=== PATIENT | female | born 1995 | race Two or more races ===

== ENCOUNTER → 2022-02-18 | Emergency (ER) | payer SELFPAY ==
[~2022-02-18] VITALS: Ht 154.9 cm; Wt 75.0 kg
[2022-02-18 05:45] VITALS: BP 132/80
== END | disposition left against medical advice (07) ==
LOC: EDBD 05:30 → ER 05:30
DX: F32.9 Major depressive disorder, single episode, unspecified (principal); Z53.21 Procedure and treatment not carried out due to patient leaving prior to being seen by health care provider

== ENCOUNTER → 2022-04-05 | Emergency (ER) | payer OTHER, MEDICAID ==
[~2022-04-05] VITALS: Ht 154.9 cm; Wt 65.7 kg
[2022-04-05 08:43] VITALS: BP 143/93
== END | disposition left against medical advice (07) ==
LOC: ER 08:26
DX: R10.2 Pelvic and perineal pain (principal); Z53.21 Procedure and treatment not carried out due to patient leaving prior to being seen by health care provider; X92 Assault by drowning and submersion; Y93.89 Activity, other specified; Y92.89 Other specified places as the place of occurrence of the external cause; Y99.8 Other external cause status

== ENCOUNTER 2022-07-22 19:52 | Emergency (ER) | payer OTHER, MEDICAID ==
[~2022-07-22] VITALS: Ht 170.2 cm; Wt 70.0 kg
[2022-07-22 19:55] VITALS: BP 132/62
== END 2022-07-22 21:45 | disposition left against medical advice (07) ==
LOC: ER 19:52 → EDBD 19:52 → ER 21:45
DX: F10.120 Alcohol abuse with intoxication, uncomplicated (principal); Z53.21 Procedure and treatment not carried out due to patient leaving prior to being seen by health care provider

== ENCOUNTER 2022-12-21 14:46 | Emergency (ER) | payer OTHER, MEDICAID ==
[~2022-12-21] VITALS: Ht 154.9 cm; Wt 140.0 kg
[2022-12-21] MEDS ORDERED: LORazepam 2MG/ML-1ML VIAL IV ONE (15:00)
[2022-12-21] MEDS ORDERED: CHL25C PO (16:14)
[2022-12-21 18:10] VITALS: BP 124/83
== END 2022-12-21 18:09 | disposition home or self-care (01) ==
LOC: EDBD 14:46 → ER 14:46
DX: F10.139 Alcohol abuse with withdrawal, unspecified (principal)
CPT/HCPCS: 93005; 96374; 99283; J2060

== ENCOUNTER 2023-01-27 03:50 | Emergency (ER) | payer OTHER, MEDICAID ==
[~2023-01-27] VITALS: Ht 154.9 cm; Wt 68.1 kg
[~2023-01-27 03:50] MED LIST: CHL25C PO
[2023-01-27 04:25] LABS: Basophils # (auto) 0.1 10 ^3/uL (0-0.2); Basophils % (auto) 0.6 % (0.0-2.0); Eosinophils # (auto) 0 10 ^3/uL (0-0.8); Eosinophils % (auto) 0.3 % (0.0-7.0); Hemoglobin 13.4 g/dL (12.2-16.2); Lymphocytes # (auto) 6.1 10 ^3/uL (0.4-5.4); Lymphocytes % (auto) 37.4 % (10.0-50.0); Mean Corpuscular Hemoglobin 32.5 pg (28.0-32.0); Mean Corpuscular Hgb Conc. 33.4 g/dL (32.0-36.0); Mean Corpuscular Volume 97.4 fL (80.0-100.0); Monocytes # (auto) 0.9 10 ^3/uL (0-1.3); Monocytes % (auto) 5.2 % (0.0-12.0); Neutrophils # (auto) 9.3 10 ^3/uL (1.6-8.6); Neutrophils % (auto) 56.5 % (37.0-80.0); Nucleated Red Blood Cells % 0.1 %; Red Blood Cells 4.11 10^6/uL (4.0-5.20); Red Cell Distribution Width 13.9 % (11.8-14.3); White Blood Cell 16.4 10^3/uL (4.4-10.8)
[2023-01-27 04:38] LABS: Albumin 3.5 g/dL (3.4-5.0); Calcium 8.1 mg/dL (8.5-10.1); Potassium 3.1 mmol/L (3.5-5.1)
[2023-01-27 04:40] LABS: BUN/Creatinine Ratio 12.9 (10.0-20.0)
[2023-01-27 04:43] LABS: Bilirubin, Total 0.8 mg/dL (0.2-1.0); Total Protein 7.1 g/dL (6.4-8.2)
[2023-01-27 05:32] VITALS: PULSE 108; RESP 17; O2SAT 95
[2023-01-27 06:30] LABS: Urine Bacteria MOD /hpf (None Seen); Urine Blood 3+ /uL (Negative); Urine Clarity Clear (Clear); Urine Color Yellow (Yellow); Urine Hyaline Cast FEW /lpf (0 - 2); Urine Mucus FEW (None Seen); Urine Protein, UAD 1+ (Negative); Urine Specific Gravity 1.024 (1.001-1.035); Urine Urobilinogen Normal (Negative); Urine WBC 4 /hpf (0 - 5)
[2023-01-27] MEDS ORDERED: LORazepam 2MG/ML-1ML VIAL IV ONE ×3 (06:45→10:45)
[2023-01-27] MEDS ORDERED: SODIUM CHLORIDE 0.9% 1,000 ML IV ONE ×2 (06:45→10:45)
[2023-01-27 06:50] LABS: Amphetamine Screen, Urine NEGATIVE (NEGATIVE); Barbiturate Scree,Urine NEGATIVE (NEGATIVE); Benzodiazephine Screen, Urine POSITIVE (NEGATIVE); Cocaine Screen, Urine NEGATIVE (NEGATIVE); Opiate Scree,Urine NEGATIVE (NEGATIVE)
[2023-01-27 07:02] LABS: Cannabinoid Screen, Urine NEGATIVE (NEGATIVE); Phencyclidine Screen, Urine NEGATIVE (NEGATIVE)
[2023-01-27] MEDS ORDERED: THIAMINE 100mg/ml INJ (200mg/2ml VIAL) IV ONE (07:45)
[2023-01-27 07:48] VITALS: PULSE 124; RESP 14; O2SAT 97
[2023-01-27] MEDS ORDERED: cefTRIAXone 1GM/50ML D5W 50 ML IV ONE (08:45)
[2023-01-27] MEDS ORDERED: POTASSIUM EFFERVESENT TAB 25 MEQ PO ONE (08:45)
[2023-01-27 10:00] VITALS: TEMP 98.1
[2023-01-27 12:00] VITALS: BP 105/66; PULSE 120; RESP 26; O2SAT 97
== END 2023-01-27 13:03 | disposition home or self-care (01) ==
LOC: EDBD 03:50 → ER 03:50
DX: F10.10 Alcohol abuse, uncomplicated (principal); R51.9 Headache, unspecified; R07.89 Other chest pain; Z79.899 Other long term (current) drug therapy; Y90.6 Blood alcohol level of 120-199 mg/100 ml
CPT/HCPCS: 36415; 70450; 71045; 80053; 80307; 80320; 81001; 82140; 83690; 84484; 85025; 93005; 96361; 96365; 96375; 96376; 99285; J0696; J2060; J3411; J7030

== ENCOUNTER 2023-11-15 20:00 | Inpatient (IN) | payer MEDICAID, OTHER ==
[~2023-11-15] VITALS: Ht 154.9 cm; Wt 76.1 kg
[2023-11-15] MEDS: SODIUM CHLORIDE 0.9% 1,000 ML IV ONE ×2 (20:41→21:45)
[2023-11-15] MEDS: LORazepam 2MG/ML-1ML VIAL IV ONE (20:50)
[2023-11-15] MEDS: THIAMINE HCL 100 MG TAB PO ONE (20:50)
[2023-11-15] MEDS: ONDANSETRON HCL 4 MG/2 ML VIAL IV ONE (20:50)
[2023-11-15 20:59] VITALS: O2SAT 97
[2023-11-15 21:08] LABS: Basophils # (auto) 0 10 ^3/uL (0-0.2); Basophils % (auto) 0.3 % (0.0-2.0); Eosinophils # (auto) 0 10 ^3/uL (0-0.8); Hematocrit 41.2 % (36.0-46.0); Hemoglobin 14.1 g/dL (12.2-16.2); Lymphocytes # (auto) 1.1 10 ^3/uL (0.4-5.4); Lymphocytes % (auto) 8.8 % (10.0-50.0); Mean Corpuscular Hemoglobin 32.9 pg (28.0-32.0); Mean Corpuscular Hgb Conc. 34.1 g/dL (32.0-36.0); Mean Corpuscular Volume 96.4 fL (80.0-100.0); Monocytes # (auto) 1.1 10 ^3/uL (0-1.3); Monocytes % (auto) 8.2 % (0.0-12.0); Neutrophils # (auto) 10.7 10 ^3/uL (1.6-8.6); Neutrophils % (auto) 82.7 % (37.0-80.0); Red Blood Cells 4.28 10^6/uL (4.0-5.20); Red Cell Distribution Width 14.5 % (11.8-14.3); White Blood Cell 12.9 10^3/uL (4.4-10.8)
[2023-11-15 21:26] LABS: Alanine Aminotransferase 36 U/L (7-40); Alkaline Phosphatase 72 U/L (46-116); Anion Gap 17 (5-15); Aspartate Aminotransferase 41 U/L (13-40); BUN/Creatinine Ratio 7.6 (10.0-20.0); Blood Alcohol 40.3 mg/dL (<10); Blood Urea Nitrogen 6 mg/dL (9-23); Calcium 9.9 mg/dL (8.5-10.1); Carbon Dioxide 19 mmol/L (20-30); Chloride 97 mmol/L (98-107); Glucose 101 mg/dL (74-106); Potassium 3.5 mmol/L (3.5-5.1); Sodium 133 mmol/L (136-145)
[2023-11-15 21:27] LABS: Bilirubin, Total 1.5 mg/dL (0.2-1.0)
[2023-11-15 21:33] LABS: Lactic Acid w/Reflex 5.6 mmol/L (0.4-2.0)
[2023-11-15 21:42] LABS: Lipase 47 U/L (12-53)
[2023-11-15] MEDS: chlordiazePOXIDE HCL 25 MG CAP PO ONE (21:48)
[2023-11-15 22:03] LABS: Urine Bacteria None Seen /hpf (None Seen)
[2023-11-15] MEDS: PANTOPRAZOLE 40 MG/10 ML VIAL INJ IV ONE (22:06)
[2023-11-15 22:20] LABS: Urine Blood Negative /uL (Negative); Urine Clarity Turbid (Clear); Urine Color Yellow (Yellow); Urine Mucus FEW (None Seen); Urine Protein, UAD 1+ (Negative); Urine Specific Gravity 1.033 (1.001-1.035); Urine Urobilinogen Normal (Negative); Urine WBC 3 /hpf (0 - 5)
[2023-11-15 22:31] LABS: Amphetamine Screen, Urine Neg (NEGATIVE); Barbiturate Scree,Urine Neg (NEGATIVE); Benzodiazephine Screen, Urine Neg (NEGATIVE); Cocaine Screen, Urine Neg (NEGATIVE); Opiate Scree,Urine Neg (NEGATIVE)
[2023-11-15 22:32] LABS: Cannabinoid Screen, Urine Neg (NEGATIVE); Phencyclidine Screen, Urine Neg (NEGATIVE)
[2023-11-15] MEDS: cefTRIAXone 1GM/50ML D5W 50 ML IV ONE (22:58)
[2023-11-15] MEDS ORDERED: POLYETHYLENE GLYCOL 17 GM PWDR PO PRN (23:30)
[2023-11-15] MEDS ORDERED: SENNA 8.6 MG TAB PO PRN (23:30)
[2023-11-15] MEDS: SODIUM CHLORIDE 0.9% 1,000 ML IV SCH (23:35)
[2023-11-15 23:48] LABS: Alanine Aminotransferase 26 U/L (7-40); Albumin 4.1 g/dL (3.2-4.8); Alkaline Phosphatase 56 U/L (46-116); Anion Gap 11 (5-15); Aspartate Aminotransferase 33 U/L (13-40); Bilirubin, Total 1.2 mg/dL (0.2-1.0); Calcium 8.9 mg/dL (8.7-10.4); Carbon Dioxide 21 mmol/L (20-30); Chloride 101 mmol/L (98-107); Glucose 94 mg/dL (74-106); Potassium 3.5 mmol/L (3.5-5.1); Sodium 133 mmol/L (136-145); Total Protein 6.6 g/dL (5.7-8.2)
[2023-11-16] VITALS (10 sets, daily range): BP systolic 93–136; BP diastolic 57–81; PULSE 54–126; RESP 14–20; TEMP 98–98.6; O2SAT 97–99
[2023-11-16 00:05] LABS: BUN/Creatinine Ratio 7.9 (10.0-20.0); Blood Urea Nitrogen < 5 mg/dL (9-23)
[2023-11-16] MEDS: FOLIC ACID 1 MG, MAGNESIUM SULF SDV 50% 8 MEQ, MULTIPLE VITAMIN 10 ML, THIAMINE INJ 100... INJ SCH (01:02)
[2023-11-16 06:14] LABS: Basophils # (auto) 0.1 10 ^3/uL (0-0.2); Basophils % (auto) 0.7 % (0.0-2.0); Eosinophils # (auto) 0 10 ^3/uL (0-0.8); Eosinophils % (auto) 0.4 % (0.0-7.0); Hemoglobin 12.5 g/dL (12.2-16.2); Lymphocytes # (auto) 1.9 10 ^3/uL (0.4-5.4); Lymphocytes % (auto) 25.7 % (10.0-50.0); Mean Corpuscular Hemoglobin 32.8 pg (28.0-32.0); Mean Corpuscular Hgb Conc. 33.8 g/dL (32.0-36.0); Monocytes # (auto) 0.6 10 ^3/uL (0-1.3); Monocytes % (auto) 8.7 % (0.0-12.0); Neutrophils # (auto) 4.8 10 ^3/uL (1.6-8.6); Neutrophils % (auto) 64.5 % (37.0-80.0); Nucleated Red Blood Cells % 0.2 %; Red Blood Cells 3.82 10^6/uL (4.0-5.20); Red Cell Distribution Width 13.8 % (11.8-14.3); White Blood Cell 7.5 10^3/uL (4.4-10.8)
[2023-11-16 06:35] LABS: Alanine Aminotransferase 26 U/L (7-40); Alkaline Phosphatase 56 U/L (46-116); Anion Gap 9 (5-15); BUN/Creatinine Ratio 6.6 (10.0-20.0); Blood Urea Nitrogen 5 mg/dL (9-23); Calcium 9.1 mg/dL (8.7-10.4); Carbon Dioxide 24 mmol/L (20-30); Chloride 104 mmol/L (98-107); Glucose 87 mg/dL (74-106); Potassium 3.4 mmol/L (3.5-5.1); Sodium 137 mmol/L (136-145)
[2023-11-16 06:36] LABS: Albumin 4.2 g/dL (3.2-4.8); Aspartate Aminotransferase 32 U/L (13-40); Bilirubin, Total 1.8 mg/dL (0.2-1.0); Total Protein 6.6 g/dL (5.7-8.2)
[2023-11-16] MEDS: ONDANSETRON HCL 4 MG/2 ML VIAL IV PRN (06:46)
[2023-11-16] MEDS: LORazepam 2MG/ML-1ML VIAL IV ONE (06:46)
[2023-11-16] MEDS: chlordiazePOXIDE HCL 25 MG CAP PO PRN (06:52)
[2023-11-16] MEDS: PANTOPRAZOLE 40 MG/10 ML VIAL INJ IV SCH (10:12)
[2023-11-16] MEDS: OXYCODONE W/ ACETAMINOPHEN 5/325MG TABLET PO PRN (15:45)
[2023-11-17] VITALS (7 sets, daily range): BP systolic 117–126; BP diastolic 70–88; PULSE 81–111; RESP 14–20; TEMP 36.1; O2SAT 98–99
[2023-11-17] MEDS: MELATONIN 5 MG TAB PO PRN (02:20)
[2023-11-17] MEDS: traMADol HCL 50 MG TAB PO PRN (02:44)
[2023-11-17 06:23] LABS: Alanine Aminotransferase 26 U/L (7-40); Albumin 3.9 g/dL (3.2-4.8); Alkaline Phosphatase 55 U/L (46-116); Anion Gap 6 (5-15); Aspartate Aminotransferase 28 U/L (13-40); BUN/Creatinine Ratio 10.2 (10.0-20.0); Blood Urea Nitrogen 6 mg/dL (9-23); Calcium 8.8 mg/dL (8.5-10.1); Carbon Dioxide 26 mmol/L (20-30); Chloride 106 mmol/L (98-107); Glucose 84 mg/dL (74-106); Potassium 3.3 mmol/L (3.5-5.1); Sodium 138 mmol/L (136-145)
[2023-11-17 06:24] LABS: Bilirubin, Total 0.7 mg/dL (0.2-1.0)
[2023-11-17] MEDS: POTASSIUM EFFERVESENT TAB 25 MEQ PO ONE (12:37)
[2023-11-17] MEDS ORDERED: ZOFR4T PO (14:36)
== END 2023-11-17 15:20 | disposition home or self-care (01) | DRG 775 ==
LOC: EDBD 20:00 → ER 20:00 → TELE 23:18 → TELE-WESTW 11-16 01:18
PROVIDERS: ADMIT Nurse Practitioner Family; ATTEND Nurse Practitioner Family
DX: F10.239 Alcohol dependence with withdrawal, unspecified (principal); F10.229 Alcohol dependence with intoxication, unspecified; E87.20 Acidosis, unspecified; E86.0 Dehydration; E87.1 Hypo-osmolality and hyponatremia; R79.89 Other specified abnormal findings of blood chemistry; Y90.2 Blood alcohol level of 40-59 mg/100 ml
CPT/HCPCS: 36415; 71045; 74176; 80053; 80307; 80320; 81001; 83605; 83690; 83735; 84702; 85025; 87040; 96361; 96365; 96375; 99291; C9113; G0378; J2405

== ENCOUNTER 2023-12-10 16:38 | Emergency (ER) | payer MEDICAID ==
[~2023-12-10] VITALS: Ht 154.9 cm; Wt 75.9 kg
[~2023-12-10 16:38] MED LIST changes: -CHL25C PO; +ZOFR4T PO
[2023-12-10 16:50] VITALS: BP 123/77; PULSE 96; RESP 18; O2SAT 97
[2023-12-10] MEDS ORDERED: LORazepam 0.5 MG TAB PO ONE (17:15)
[2023-12-10] MEDS: LORazepam 0.5 MG TAB ONE (17:22)
[2023-12-10] MEDS: LORazepam 2MG/ML-1ML VIAL IM ONE (17:22)
[2023-12-10] MEDS ORDERED: SODIUM CHLORIDE 0.9% 1,000 ML IV ONE (18:15)
[2023-12-10] MEDS ORDERED: PANTOPRAZOLE 40 MG/10 ML VIAL INJ IV ONE (18:15)
== END 2023-12-10 18:32 | disposition left against medical advice (07) ==
LOC: ER 16:38 → EDBD 16:38 → ER 18:32
DX: F41.9 Anxiety disorder, unspecified (principal); K92.1 Melena; Z53.21 Procedure and treatment not carried out due to patient leaving prior to being seen by health care provider
CPT/HCPCS: 96372; J2060

== ENCOUNTER 2023-12-11 15:14 | Inpatient (IN) | payer BC, MEDICAID ==
[~2023-12-11] VITALS: Ht 175.3 cm; Wt 79.2 kg
[2023-12-11 16:20] VITALS: PULSE 116; RESP 26; O2SAT 93
[2023-12-11 16:21] LABS: Basophils # (auto) 0 10 ^3/uL (0-0.2); Basophils % (auto) 0.7 % (0.0-2.0); Eosinophils # (auto) 0 10 ^3/uL (0-0.8); Eosinophils % (auto) 0.1 % (0.0-7.0); Hematocrit 40.2 % (36.0-46.0); Hemoglobin 13.5 g/dL (12.2-16.2); Lymphocytes # (auto) 2.3 10 ^3/uL (0.4-5.4); Lymphocytes % (auto) 35.5 % (10.0-50.0); Mean Corpuscular Hemoglobin 32.5 pg (28.0-32.0); Mean Corpuscular Hgb Conc. 33.6 g/dL (32.0-36.0); Mean Corpuscular Volume 96.6 fL (80.0-100.0); Monocytes # (auto) 0.6 10 ^3/uL (0-1.3); Monocytes % (auto) 8.9 % (0.0-12.0); Neutrophils # (auto) 3.5 10 ^3/uL (1.6-8.6); Neutrophils % (auto) 54.8 % (37.0-80.0); Red Blood Cells 4.16 10^6/uL (4.0-5.20); Red Cell Distribution Width 13.8 % (11.8-14.3); White Blood Cell 6.4 10^3/uL (4.4-10.8)
[2023-12-11 16:41] LABS: Alanine Aminotransferase 23 U/L (7-40); Albumin 4.5 g/dL (3.2-4.8); Alkaline Phosphatase 65 U/L (46-116); Anion Gap 8 (5-15); Aspartate Aminotransferase 19 U/L (13-40); Bilirubin, Total 0.4 mg/dL (0.2-1.0); Calcium 8.9 mg/dL (8.5-10.1); Carbon Dioxide 25 mmol/L (20-30); Chloride 111 mmol/L (98-107); Glucose 97 mg/dL (74-106); Potassium 3.4 mmol/L (3.5-5.1); Sodium 144 mmol/L (136-145); Total Protein 7.1 g/dL (5.7-8.2)
[2023-12-11] MEDS: THIAMINE 100mg/ml INJ (200mg/2ml VIAL) IV ONE (16:44)
[2023-12-11] MEDS: SODIUM CHLORIDE 0.9% 1,000 ML IV ONE (16:44)
[2023-12-11 16:49] LABS: Blood Alcohol 316.8 mg/dL (<10)
[2023-12-11 16:50] LABS: BUN/Creatinine Ratio 5.8 (10.0-20.0); Blood Urea Nitrogen < 5 mg/dL (9-23)
[2023-12-11 16:57] LABS: Lactic Acid w/Reflex 3.6 mmol/L (0.4-2.0)
[2023-12-11 19:30] VITALS: PULSE 75; RESP 20; O2SAT 98
[2023-12-11 21:33] VITALS: PULSE 98; RESP 22; O2SAT 97
[2023-12-11] MEDS: LORazepam 2MG/ML-1ML VIAL IV ONE (22:03)
[2023-12-11] MEDS: TEMAZEPAM 15 MG CAP PO PRN (23:40)
[2023-12-11] MEDS: POTASSIUM CHL 20 Meq TABLET PO ONE (23:41)
[2023-12-12] MEDS: SODIUM CHLORIDE 0.9% 1,000 ML IV SCH ×2 (01:11→17:40)
[2023-12-12 01:18] VITALS: PULSE 92; RESP 12; O2SAT 97
[2023-12-12 04:42] LABS: Basophils # (auto) 0.1 10 ^3/uL (0-0.2); Basophils % (auto) 0.7 % (0.0-2.0); Eosinophils # (auto) 0 10 ^3/uL (0-0.8); Eosinophils % (auto) 0.3 % (0.0-7.0); Hematocrit 36.3 % (36.0-46.0); Hemoglobin 12.4 g/dL (12.2-16.2); Lymphocytes # (auto) 2.7 10 ^3/uL (0.4-5.4); Lymphocytes % (auto) 35.5 % (10.0-50.0); Mean Corpuscular Hemoglobin 32.5 pg (28.0-32.0); Mean Corpuscular Volume 95.6 fL (80.0-100.0); Monocytes # (auto) 0.6 10 ^3/uL (0-1.3); Monocytes % (auto) 8.1 % (0.0-12.0); Neutrophils # (auto) 4.3 10 ^3/uL (1.6-8.6); Neutrophils % (auto) 55.4 % (37.0-80.0); Nucleated Red Blood Cells % 0.1 %; Red Cell Distribution Width 13.9 % (11.8-14.3); White Blood Cell 7.7 10^3/uL (4.4-10.8)
[2023-12-12 04:59] LABS: Alanine Aminotransferase 18 U/L (7-40); Albumin 3.8 g/dL (3.2-4.8); Alkaline Phosphatase 53 U/L (46-116); Anion Gap 8 (5-15); Aspartate Aminotransferase 18 U/L (13-40); Bilirubin, Total 0.6 mg/dL (0.2-1.0); Calcium 8.3 mg/dL (8.7-10.4); Carbon Dioxide 21 mmol/L (20-30); Chloride 111 mmol/L (98-107); Glucose 77 mg/dL (74-106); Potassium 3.9 mmol/L (3.5-5.1); Sodium 140 mmol/L (136-145); Total Protein 6.2 g/dL (5.7-8.2)
[2023-12-12 05:03] LABS: BUN/Creatinine Ratio 6.4 (10.0-20.0); Blood Urea Nitrogen < 5 mg/dL (9-23)
[2023-12-12] MEDS: ONDANSETRON HCL 4 MG/2 ML VIAL IV PRN (05:16)
[2023-12-12 05:33] VITALS: BP 113/65; PULSE 82; RESP 17; TEMP 97.7; O2SAT 96
[2023-12-12 05:36] VITALS: PULSE 88; RESP 17; O2SAT 95
[2023-12-12] MEDS: chlordiazePOXIDE HCL 25 MG CAP PO PRN (06:41)
[2023-12-12 08:54] VITALS: BP 102/62; PULSE 80; RESP 15; TEMP 98.2; O2SAT 96
[2023-12-12 11:33] LABS: Urine Bacteria None Seen /hpf (None Seen)
[2023-12-12 11:51] LABS: Urine Blood Negative /uL (Negative); Urine Clarity Clear (Clear); Urine Color Colorless (Yellow); Urine Protein, UAD Negative (Negative); Urine Specific Gravity 1.003 (1.001-1.035); Urine Urobilinogen Normal (Negative); Urine WBC 1 /hpf (0 - 5)
[2023-12-12 17:02] VITALS: BP 115/64; PULSE 82; RESP 15; TEMP 98; O2SAT 99
[2023-12-12] MEDS: ACETAMINOPHEN 325 MG TAB PO PRN (17:37)
[2023-12-12] MEDS: FOLIC ACID 1 MG, MAGNESIUM SULF SDV 50% 8 MEQ, MULTIPLE VITAMIN 10 ML, THIAMINE INJ 100... INJ SCH (18:07)
[2023-12-12 21:00] VITALS: BP 125/76; PULSE 88; RESP 18; TEMP 98.6; O2SAT 99
[2023-12-13 01:00] VITALS: BP 126/83; PULSE 87; RESP 18; TEMP 98; O2SAT 98
[2023-12-13 08:00] VITALS: PULSE 82
[2023-12-13] MEDS ORDERED: CHL25C PO (12:48)
[2023-12-13] MEDS ORDERED: FOLI-119 PO (12:48)
[2023-12-13] MEDS ORDERED: THIA100T13 PO (12:48)
[2023-12-13] MEDS ORDERED: MULT1TAB95 PO (12:48)
[2023-12-13 13:00] VITALS: BP 116/85; PULSE 69; RESP 20; TEMP 98.1; O2SAT 98
[2023-12-13 13:43] VITALS: BP 126/83; PULSE 87; RESP 18; TEMP 98; O2SAT 96
== END 2023-12-13 15:15 | disposition home or self-care (01) | DRG 917 ==
LOC: EDBD 15:14 → ER 15:14 → OVERFLOW 23:13 → WEST WING 12-12 04:40
PROVIDERS: ADMIT Nurse Practitioner; ATTEND Family Medicine
DX: T50.992A Poisoning by other drugs, medicaments and biological substances, intentional self-harm, initial encounter (principal); G92.8 Other toxic encephalopathy; F10.239 Alcohol dependence with withdrawal, unspecified; R45.851 Suicidal ideations; E86.0 Dehydration; F10.229 Alcohol dependence with intoxication, unspecified; Y90.8 Blood alcohol level of 240 mg/100 ml or more; Y92.89 Other specified places as the place of occurrence of the external cause
CPT/HCPCS: 36415; 74176; 80053; 80320; 81001; 83605; 84702; 85025; 87081; 96374; 96375; G0378; J2405

== ENCOUNTER 2024-02-06 19:33 | Inpatient (IN) | payer BC, MEDICAID ==
[~2024-02-06] VITALS: Ht 154.9 cm; Wt 81.5 kg
[~2024-02-06 19:33] MED LIST changes: +CHL25C PO; +FOLI-119 PO; +MULT1TAB95 PO; +THIA100T13 PO
[2024-02-06] MEDS: chlordiazePOXIDE HCL 25 MG CAP PO ONE (20:11)
[2024-02-06] MEDS: LORazepam 0.5 MG TAB PO ONE (20:11)
[2024-02-06 21:16] LABS: Basophils # (auto) 0 10 ^3/uL (0-0.2); Basophils % (auto) 0.5 % (0.0-2.0); Eosinophils # (auto) 0 10 ^3/uL (0-0.8); Eosinophils % (auto) 0.1 % (0.0-7.0); Hematocrit 41.2 % (36.0-46.0); Hemoglobin 13.9 g/dL (12.2-16.2); Lymphocytes # (auto) 0.6 10 ^3/uL (0.4-5.4); Mean Corpuscular Hemoglobin 32.3 pg (28.0-32.0); Mean Corpuscular Hgb Conc. 33.7 g/dL (32.0-36.0); Mean Corpuscular Volume 95.8 fL (80.0-100.0); Monocytes # (auto) 0.2 10 ^3/uL (0-1.3); Monocytes % (auto) 2.5 % (0.0-12.0); Neutrophils # (auto) 8.5 10 ^3/uL (1.6-8.6); Neutrophils % (auto) 90.9 % (37.0-80.0); Nucleated Red Blood Cells % 0.1 %; Red Blood Cells 4.31 10^6/uL (4.0-5.20); Red Cell Distribution Width 16.6 % (11.8-14.3); White Blood Cell 9.4 10^3/uL (4.4-10.8)
[2024-02-06 21:38] LABS: Alanine Aminotransferase 161 U/L (7-40); Albumin 4.7 g/dL (3.2-4.8); Alkaline Phosphatase 82 U/L (46-116); Anion Gap 21 (5-15); Aspartate Aminotransferase 179 U/L (13-40); Bilirubin, Total 0.8 mg/dL (0.2-1.0); Calcium 9.8 mg/dL (8.7-10.4); Carbon Dioxide 12 mmol/L (20-30); Chloride 101 mmol/L (98-107); Glucose 57 mg/dL (74-106); Sodium 134 mmol/L (136-145); Total Protein 7.7 g/dL (5.7-8.2)
[2024-02-06 21:42] LABS: BUN/Creatinine Ratio 6.8 (10.0-20.0); Blood Urea Nitrogen < 5 mg/dL (9-23)
[2024-02-06] MEDS: SODIUM CHLORIDE 0.9% 1,000 ML IV ONE (23:48)
[2024-02-07] VITALS (9 sets, daily range): BP systolic 117–128; BP diastolic 60–80; PULSE 56–121; RESP 16–22; TEMP 97.7–98.6; O2SAT 0–98
[2024-02-07] MEDS: LORazepam 0.5 MG TAB PO ONE (00:17)
[2024-02-07] MEDS ORDERED: MORPHINE SULFATE INJ 2 MG/ml SYRG IV PRN (02:15)
[2024-02-07] MEDS ORDERED: ONDANSETRON HCL 4 MG/2 ML VIAL IV PRN (02:15)
[2024-02-07] MEDS ORDERED: DOCUSATE SOD 100 MG CAP PO PRN (02:15)
[2024-02-07] MEDS ORDERED: NITROGLYCERIN 0.4 MG SL TAB SL PRN (02:15)
[2024-02-07] MEDS ORDERED: LORazepam 2MG/ML-1ML VIAL IV PRN (02:15)
[2024-02-07] MEDS: FOLIC ACID 1 MG, MAGNESIUM SULF SDV 50% 8 MEQ, MULTIPLE VITAMIN 10 ML, THIAMINE INJ 100... INJ SCH (03:45)
[2024-02-07] MEDS: THIAMINE 100mg/ml INJ (200mg/2ml VIAL) ONE (03:48)
[2024-02-07] MEDS: SODIUM CHLORIDE 0.9% 1,000 ML IV SCH (03:48)
[2024-02-07] MEDS: MVI in SODIUM CHLORIDE 0.9% 1,010 ML ONE (03:49)
[2024-02-07] MEDS: chlordiazePOXIDE HCL 25 MG CAP PO SCH (05:48)
[2024-02-07] MEDS: GABAPENTIN 300 MG CAP PO SCH (05:50)
[2024-02-07 06:48] LABS: Anion Gap 12 (5-15); Calcium 9.2 mg/dL (8.7-10.4); Carbon Dioxide 19 mmol/L (20-30); Chloride 103 mmol/L (98-107); Potassium 3.7 mmol/L (3.5-5.1); Sodium 134 mmol/L (136-145)
[2024-02-07 06:53] LABS: Basophils # (auto) 0 10 ^3/uL (0-0.2); Basophils % (auto) 0.6 % (0.0-2.0); Eosinophils # (auto) 0 10 ^3/uL (0-0.8); Eosinophils % (auto) 0.3 % (0.0-7.0); Hematocrit 37.3 % (36.0-46.0); Hemoglobin 12.7 g/dL (12.2-16.2); Lymphocytes # (auto) 1.1 10 ^3/uL (0.4-5.4); Mean Corpuscular Hemoglobin 32.8 pg (28.0-32.0); Mean Corpuscular Volume 96.7 fL (80.0-100.0); Monocytes # (auto) 0.3 10 ^3/uL (0-1.3); Monocytes % (auto) 4.5 % (0.0-12.0); Neutrophils # (auto) 4.9 10 ^3/uL (1.6-8.6); Neutrophils % (auto) 77.6 % (37.0-80.0); Nucleated Red Blood Cells % 0.1 %; Red Blood Cells 3.86 10^6/uL (4.0-5.20); Red Cell Distribution Width 16.5 % (11.8-14.3); White Blood Cell 6.3 10^3/uL (4.4-10.8)
[2024-02-07 06:54] LABS: Glucose 84 mg/dL (74-106)
[2024-02-07 06:55] LABS: BUN/Creatinine Ratio 7.2 (10.0-20.0); Blood Urea Nitrogen < 5 mg/dL (9-23)
[2024-02-07] MEDS: PANTOPRAZOLE 40 MG/10 ML VIAL INJ IV SCH (09:29)
[2024-02-07] MEDS: ENOXAPARIN SOD 40 MG/0.4 ML SYRINGE SC SCH (09:29)
[2024-02-08] VITALS (8 sets, daily range): BP systolic 100–126; BP diastolic 70–92; PULSE 60–81; RESP 15–19; TEMP 97.6–98.6; O2SAT 96–99
[2024-02-08 06:31] LABS: Basophils # (auto) 0 10 ^3/uL (0-0.2); Basophils % (auto) 0.5 % (0.0-2.0); Eosinophils # (auto) 0.1 10 ^3/uL (0-0.8); Eosinophils % (auto) 2.3 % (0.0-7.0); Hematocrit 39.4 % (36.0-46.0); Hemoglobin 13.2 g/dL (12.2-16.2); Lymphocytes # (auto) 1.7 10 ^3/uL (0.4-5.4); Lymphocytes % (auto) 36.2 % (10.0-50.0); Mean Corpuscular Hemoglobin 32.3 pg (28.0-32.0); Mean Corpuscular Hgb Conc. 33.5 g/dL (32.0-36.0); Mean Corpuscular Volume 96.3 fL (80.0-100.0); Monocytes # (auto) 0.4 10 ^3/uL (0-1.3); Monocytes % (auto) 7.6 % (0.0-12.0); Neutrophils # (auto) 2.5 10 ^3/uL (1.6-8.6); Neutrophils % (auto) 53.4 % (37.0-80.0); Nucleated Red Blood Cells % 0.2 %; Red Blood Cells 4.09 10^6/uL (4.0-5.20); Red Cell Distribution Width 16.2 % (11.8-14.3); White Blood Cell 4.6 10^3/uL (4.4-10.8)
[2024-02-08 06:51] LABS: Alanine Aminotransferase 94 U/L (7-40); Albumin 3.7 g/dL (3.2-4.8); Alkaline Phosphatase 63 U/L (46-116); Anion Gap 6 (5-15); Aspartate Aminotransferase 69 U/L (13-40); Calcium 8.9 mg/dL (8.7-10.4); Carbon Dioxide 23 mmol/L (20-30); Chloride 109 mmol/L (98-107); Glucose 81 mg/dL (74-106); Potassium 3.3 mmol/L (3.5-5.1); Sodium 138 mmol/L (136-145)
[2024-02-08 06:52] LABS: Bilirubin, Total 0.7 mg/dL (0.2-1.0); Total Protein 6.1 g/dL (5.7-8.2)
[2024-02-08 06:55] LABS: BUN/Creatinine Ratio 8.8 (10.0-20.0); Blood Urea Nitrogen < 5 mg/dL (9-23)
[2024-02-08] MEDS: THIAMINE HCL 100 MG TAB PO SCH (10:22)
[2024-02-08] MEDS: MULTIPLE VITAMIN TAB PO SCH (10:22)
[2024-02-08] MEDS: FOLIC ACID 1 MG TAB PO SCH (10:22)
[2024-02-08] MEDS: MAGNESIUM OXIDE 400 MG TAB PO SCH (10:22)
[2024-02-08] MEDS: POTASSIUM EFFERVESENT TAB 25 MEQ PO ONE (10:27)
[2024-02-08 11:00] LABS: Urine Bacteria None Seen /hpf (None Seen)
[2024-02-08 11:32] LABS: Urine Blood Negative /uL (Negative); Urine Clarity Clear (Clear); Urine Color Colorless (Yellow); Urine Protein, UAD Negative (Negative); Urine Specific Gravity 1.005 (1.001-1.035); Urine Urobilinogen Normal (Negative); Urine WBC <1 /hpf (0 - 5)
[2024-02-08 11:42] LABS: Amphetamine Screen, Urine Neg (NEGATIVE)
[2024-02-08 11:43] LABS: Barbiturate Scree,Urine Neg (NEGATIVE); Benzodiazephine Screen, Urine Pos (NEGATIVE)
[2024-02-08 11:44] LABS: Cannabinoid Screen, Urine Neg (NEGATIVE); Cocaine Screen, Urine Neg (NEGATIVE); Opiate Scree,Urine Neg (NEGATIVE); Phencyclidine Screen, Urine Neg (NEGATIVE)
[2024-02-08] MEDS: ERGOCALCIFEROL 50,000 UNIT(1.25MG) CAP PO SCH (12:54)
[2024-02-08] MEDS: ACETAMINOPHEN 325 MG TAB PO PRN (21:06)
[2024-02-09 01:00] VITALS: BP 92/56; PULSE 94; RESP 17; TEMP 97.8; O2SAT 98
[2024-02-09 06:41] LABS: Basophils # (auto) 0 10 ^3/uL (0-0.2); Basophils % (auto) 0.4 % (0.0-2.0); Eosinophils # (auto) 0.1 10 ^3/uL (0-0.8); Eosinophils % (auto) 2.6 % (0.0-7.0); Hematocrit 41.7 % (36.0-46.0); Lymphocytes % (auto) 43.9 % (10.0-50.0); Mean Corpuscular Hemoglobin 32.8 pg (28.0-32.0); Mean Corpuscular Hgb Conc. 33.6 g/dL (32.0-36.0); Mean Corpuscular Volume 97.6 fL (80.0-100.0); Monocytes # (auto) 0.3 10 ^3/uL (0-1.3); Monocytes % (auto) 7.7 % (0.0-12.0); Neutrophils % (auto) 45.4 % (37.0-80.0); Nucleated Red Blood Cells % 0.1 %; Red Blood Cells 4.27 10^6/uL (4.0-5.20); Red Cell Distribution Width 16.7 % (11.8-14.3); White Blood Cell 4.5 10^3/uL (4.4-10.8)
[2024-02-09 06:57] LABS: Anion Gap 6 (5-15); Carbon Dioxide 25 mmol/L (20-30); Chloride 107 mmol/L (98-107); Potassium 3.4 mmol/L (3.5-5.1); Sodium 138 mmol/L (136-145)
[2024-02-09 06:58] LABS: Calcium 9.5 mg/dL (8.7-10.4)
[2024-02-09 07:03] LABS: Glucose 86 mg/dL (74-106)
[2024-02-09 07:04] LABS: BUN/Creatinine Ratio 8.5 (10.0-20.0); Blood Urea Nitrogen < 5 mg/dL (9-23)
[2024-02-09] MEDS ORDERED: ERGO1CAP23 PO (09:04)
[2024-02-09] MEDS: POTASSIUM CHL 20 Meq TABLET PO ONE (09:14)
[2024-02-09 09:25] VITALS: BP 120/81; PULSE 75; RESP 15; TEMP 98.1; O2SAT 99
[2024-02-09 09:49] VITALS: BP 120/81; PULSE 75; RESP 15; TEMP 98.1; O2SAT 99
== END 2024-02-09 10:17 | disposition home or self-care (01) | DRG 433 ==
LOC: ER 19:33 → EDBD 19:33 → TELE 02-07 02:20 → TELE-CENTR 02-07 04:55
PROVIDERS: ADMIT Internal Medicine; ATTEND Internal Medicine
DX: K70.9 Alcoholic liver disease, unspecified (principal); E87.1 Hypo-osmolality and hyponatremia; E87.20 Acidosis, unspecified; F10.239 Alcohol dependence with withdrawal, unspecified; E86.0 Dehydration; E55.9 Vitamin D deficiency, unspecified; Z79.899 Other long term (current) drug therapy
CPT/HCPCS: 36415; 76705; 80048; 80053; 80307; 81001; 82306; 82607; 83735; 84702; 85025; G0378; J2470

== ENCOUNTER 2024-12-22 13:28 | Emergency (ER) | payer BC, MEDICAID ==
[~2024-12-22] VITALS: Ht 154.9 cm; Wt 72.7 kg
[~2024-12-22 13:28] MED LIST changes: -CHL25C PO; +ERGO1CAP23 PO; -FOLI-119 PO; -THIA100T13 PO; -ZOFR4T PO
--- NOTE | 2024-12-22 13:40 | ED.PDOC ---
History of Present Illness HPI Comments 29-year-old female brought by paramedics because of shaking. She has been drinking for the past few weeks mainly vodka. States that she does not have a history of anxiety for which she does not take any medication. Denies suicide homicidal ideation. Denies any other symptoms. Chief Complaint: Withdrawal Time Seen by MD: 13:34 Primary Care Provider: Unknown Reviewed Notes: Nurses Notes, Medications, Allergies Allergies: Coded Allergies: NO KNOWN ALLERGIES (Unverified , 02/18/22) Home Meds Active Scripts Ondansetron Odt 4MG Tab (ZOFRAN PO) 4 Mg Tb, 4 MG PO DAILY for 3 Days, #3 TAB ODT TAB-DISSOLVE IN MOUTH, THEN SWALLOW Prov:JOEL AGUILAR MD 12/22/24 Lorazepam (ATIVAN TABLET) 0.5 Mg Tb, 1 TAB PO DAILY for 5 Days, #5 TAB Prov:JOEL AGUILAR MD 12/22/24 Ergocalciferol (VITAMIN D 18222 UNIT) 50,[address] [place], [address] UNIT PO QWEEKLY for 90 Days, #12 CAP Prov:DAMEON VILLA RESIDENT 02/09/24 Multiple Vitamin (Multi Vitamin) 1 Tab Tab, 1 TAB PO DAILY, #30 TAB Prov:REMI BINGHAM MD 12/13/23 Information Source: Patient, Emergency Med Personnel Mode of Arrival: EMS Severity: Moderate Timing: Days Duration: Since onset Past Medical History PAST MEDICAL HISTORY: Anxiety, Seizures Surgical History: Unknown [employer] History: Denies all [employer] Hx Family History Family History: Unknown Social History Smoker: Non-Smoker Alcohol: Heavy Drugs: Denies Drug Use Lives In: Home Constitutional: denies: chills, diaphoresis, fatigue, fever, malaise, sweats, weakness, others EENTM: denies: blurred vision, double vision, ear bleeding, ear discharge, ear drainage, ear pain, ear ringing, eye pain, eye redness, hearing loss, mouth pain, mouth swelling, nasal discharge, nose bleeding, nose congestion, nose pain, photophobia, tearing, throat pain, throat swelling, voice changes, others Respiratory: denies: cough, hemoptysis, orthopnea, SOB at rest, shortness of breath, SOB with excertion, stridor, wheezing, others Cardiovascular: denies: chest pain, dizzy spells, diaphoresis, Dyspnea on exertion, edema, irregular heart beat, left arm pain, lightheadedness, palpitations, PND, syncope, others Gastrointestinal: denies: abdomen distended, abdominal pain, blood streaked bowels, constipated, diarrhea, dysphagia, difficulty swallowing, hematemesis, melena, nausea, poor appetite, poor fluid intake, rectal bleeding, rectal pain, vomiting, others Genitourinary: denies: abnormal vagina bleeding, burning, dyspareunia, dysuria, flank pain, frequency, hematuria, incontinence, pain, , vagina discharge, urgency, others Neurological: denies: dizziness, fainting, headache, left sided numbness, left sided weakness, numbness, paresthesia, pre-existing deficit, right sided numbness, right sided weakness, seizure, speech problems, tingling, tremors, weakness, others Musculoskeletal: denies: back pain, gout, joint pain, joint swelling, muscle pain, muscle stiffness, neck pain, others Integumetry: denies: bruises, change in color, change in hair/nails, dryness, laceration, lesions, lumps, rash, wounds, others Allergic/Immunocompromised: denies: Difficulty Healing, Frequent Infections, Hives, Itching, others Endocrine: denies: excessive hunger, excessive sweating, excessive thirst, excessive urination, flushing, intolerance to cold, intolerance to heat, unexplained weight gain, unexplained weight loss, others Psychiatric: reports: anxiety; denies: bipolar disorder, depression, hopeless, panic disorder, schizophrenia, sleepless, suicidal, others Physical Exam General Appearance: Moderate Distress HEENT: Normal ENT Inspection, Pharynx Normal, TMs Normal Neck: Full Range of Motion, Non-Tender, Normal, Normal Inspection Respiratory: Chest Non-Tender, Lungs Clear, No Accessory Muscle Use, No Respiratory Distress, Normal Breath Sounds Cardiovascular: No Edema, No JVD, No Murmur, No Gallop, Normal Peripheral Pulses, Regular Rate/Rhythm Breast Exam: Deferred Gastrointestinal: No Organomegaly, Non Tender, No Pulsatile Mass, Normal Bowel Sounds, Soft Genitalia: Deferred Pelvic: Deferred Rectal: Deferred Extremities: No calf tenderness, Normal capillary refill, Normal inspection, Normal range of motion, Non-tender, No pedal edema Musculoskeletal : Apperance: Normal Neurologic: Alert, senior compliance analyst II-XII nml as Tested, No Motor Deficits, Normal Affect, Normal Mood, No Sensory Deficits Cerebellar Function: NOT DONE Reflexes: NOT DONE Skin: Dry, Normal Color, Warm Peripheral Pulses: 3+ Radial (R), 3+ Radial (L) Lymphatic: No Adenopathy Was a procedure done? Was a procedure done?: No Differential Dx Considerations may include: Alcohol withdrawal X-Ray, Labs, Meds, VS Vital Signs Date Time Temp Pulse Resp B/P (MAP) Pulse Ox O2 Delivery O2 Flow Rate FiO2 12/22/24 16:05 91 17 130/91 (104) 96 12/22/24 15:20 98.6 117 18 134/94 (107) 95 98.6 12/22/24 15:20 117 18 95 Room Air 12/22/24 13:31 98.2 105 18 121/88 (99) 97 98.2 Lab Test 12/22/24 14:05 Range/Units Plasma/Serum Blood Alcohol 3.2 <10 mg/dL Current Medications Medications (Trade) Dose Ordered Sig/Marimar Route Start Time Stop Time Status Last Admin Thiamine HCl 100 mg ONCE ONCE IV 12/22/24 13:45 12/22/24 13:46 DC 12/22/24 15:22 Lorazepam (Ativan Inj) 1 mg ONCE ONCE IV 12/22/24 13:45 12/22/24 13:46 DC 12/22/24 15:22 Sodium Chloride 1,000 ml @ 1,000 mls/hr Q1H ONCE IV 12/22/24 13:45 12/22/24 14:44 DC 12/22/24 13:45 Ondansetron HCl (Zofran) 4 mg ONCE ONCE IV 12/22/24 15:15 12/22/24 15:16 DC 12/22/24 15:22 Patient alert. Vitals stable. Alcohol abuse. Answering questions. She has been drinking continuously last one being few hours ago. Establish intravenous access. Was given fluids. Was given thiamine. Counseled patient on effects of drinking for 15 minutes. Explained to the patient. Continue monitoring. Time of 1ST Reevaluation: 13:39 Reevaluation 1ST: Unchanged Patient Education/Counseling: Diagnosis, Treatment, Prognosis, Need For Follow Up Family Education/Counseling: No Family Present SEPSIS Sepsis Screen Vital Signs Date Time Temp Pulse Resp B/P (MAP) Pulse Ox O2 Delivery O2 Flow Rate FiO2 12/22/24 16:05 91 17 130/91 (104) 96 12/22/24 15:20 98.6 117 18 134/94 (107) 95 98.6 12/22/24 15:20 117 18 95 Room Air 12/22/24 13:31 98.2 105 18 121/88 (99) 97 98.2 Medications Medications Dose Ordered Sig/Marimar Route Start Time Stop Time Status Last Admin Dose Admin Lorazepam 1 mg ONCE ONCE IV 12/22/24 13:45 12/22/24 13:46 DC 12/22/24 15:22 Ondansetron HCl 4 mg ONCE ONCE IV 12/22/24 15:15 12/22/24 15:16 DC 12/22/24 15:22 Sodium Chloride 1,000 ml @ 1,000 mls/hr Q1H ONCE IV 12/22/24 13:45 12/22/24 14:44 DC 12/22/24 13:45 Thiamine HCl 100 mg ONCE ONCE IV 12/22/24 13:45 12/22/24 13:46 DC 12/22/24 15:22 Departure 1 Departure Time of Disposition: 13:40 Impression: Primary Impression: Alcohol withdrawal Qualified Codes: F10.930 - Alcohol use, unspecified with withdrawal, uncom plicated Additional Impression: Dehydration Disposition: 01 HOME / SELF CARE / HOMELESS Condition: Good e-Prescriptions Ondansetron Odt 4MG Tab (ZOFRAN PO) 4 Mg Tb 4 MG PO DAILY for 3 Days, #3 TAB ODT TAB-DISSOLVE IN MOUTH, THEN SWALLOW Prov: JOEL AGUILAR MD 12/22/24 Lorazepam (ATIVAN TABLET) 0.5 Mg Tb 1 TAB PO DAILY for 5 Days, #5 TAB Prov: JOEL AGUILAR MD 12/22/24 Discharged With: Self Critical Care Note Critical Care Time?: No Stability Stability form required: No Heart Score Heart Score: Heart Score Response (Comments) Value History N/A 0 EKG N/A 0 Age N/A 0 Risk Factors N/A 0 Troponin N/A 0 Total 0 JOEL AGUILAR MD Dec 22, 2024 13:40
[2024-12-22] MEDS: SODIUM CHLORIDE 0.9% 1,000 ML IV ONE ×2 (13:45→14:59)
[2024-12-22 15:20] VITALS: TEMP 98.6
[2024-12-22] MEDS: THIAMINE 100mg/ml INJ (200mg/2ml VIAL) IV ONE (15:22)
[2024-12-22] MEDS: ONDANSETRON HCL 4 MG/2 ML VIAL IV ONE (15:22)
[2024-12-22] MEDS: LORazepam 2MG/ML-1ML VIAL IV ONE (15:22)
[2024-12-22 16:05] VITALS: BP 130/91; PULSE 91; RESP 17; O2SAT 96
[2024-12-22] MEDS ORDERED: LORA-1121 PO (16:43)
[2024-12-22] MEDS ORDERED: ZOFR4T PO (16:43)
== END 2024-12-22 16:16 | disposition home or self-care (01) ==
LOC: ER 13:28 → EDBD 13:28 → ER 16:16
DX: F10.930 Alcohol use, unspecified with withdrawal, uncomplicated (principal); E86.0 Dehydration; F41.9 Anxiety disorder, unspecified; Z79.899 Other long term (current) drug therapy; Y90.0 Blood alcohol level of less than 20 mg/100 ml
CPT/HCPCS: 36415; 80320; 96361; 96374; 96375; 99284; J2060; J2405; J3411; J7030